=== PATIENT | female | born 1955 | race Caucasian/White ===

== ENCOUNTER → 2017-07-22 | Outpatient (CLI) | payer OTHER, BC ==
[~2017-07-22] MED LIST: ESTR0.3T PO; FELO5TAB PO; STLS
--- NOTE | 2017-07-22 09:01 | DIAGNOSTIC IMAGING REPORT ---
L SHOULDER MIN 2 VIEWS ROUTINE CLINICAL HISTORY: L SHOULDER PAIN COMPARISON: None. DISCUSSION: No fractures or dislocations are visualized. There are small subchondral cysts within the humeral head. IMPRESSION: No fractures or dislocations identified. Electronically signed by: Robert Paredes M.D. 07/22/2017 8:59 AM Dictated Date/Time: 07/22/2017 8:54 AM
== END | disposition home or self-care (01) ==
LOC: C.RAD1850 08:36
PROVIDERS: ATTEND Nurse Practitioner Adult Health
DX: M25.512 Pain in left shoulder (principal)

== ENCOUNTER → 2017-09-22 | Outpatient (CLI) | payer OTHER ==
--- NOTE | 2017-09-23 14:38 | MAMMOGRAPHY REPORT ---
BILATERAL DIGITAL SCREENING MAMMOGRAM TOMOSYNTHESIS WITH CAD: 09/22/2017 CLINICAL HISTORY: Routine screening. Patient has no complaints. TECHNIQUE: Breast tomosynthesis in addition to standard 2D mammography was performed. Current study was also evaluated with a Computer Aided Detection (CAD) system. COMPARISON: Comparison is made to exams dated: 08/02/2016 mammogram, 01/17/2015 mammogram, 12/27/2013 m ammogram, 11/23/2012 mammogram, 10/22/2011 mammogram, and 09/20/2010 mammogram - [facility] enter. BREAST COMPOSITION: There are scattered areas of fibroglandular density in both breasts. FINDINGS: A linear scar marker overlies the medial left breast, denoting an area of prior surgery. There is a focal area of architectural distortion in the 12:00 middle to posterior right breast, for which additional targeted ultrasound and possible additional mammographic views are recommended (best seen on CC tomosynthesis slice 36/65, and MLO tomosynthesis slice 4748/79). No other suspicious mass, architectural distortion or cluster of microcalcifications is seen bilatera lly. IMPRESSION: ACR BI-RADS CATEGORY 0: INCOMPLETE EVALUATION: NEED ADDITIONAL IMAGING EVALUATION The focal area of architectural distortion in the 12:00 right breast needs additional evaluation. The patient will be called to schedule an appointment. Approximately 10% of breast cancers are not detected with mammography. A negative mammographic report should not delay biopsy if a clinically suggestive mass is present. Suellen Meehan M.D. ay/:09/22/2017 15:30:41 Electrical Prospector: Giuliana BERTRAND)(Anastasiya), [facility] letter sent: Addl Imaging 0 BI-RADS Code: ACR BI-RADS Category 0: Incomplete Evaluation: Need Additional Imaging Evaluation
== END | disposition home or self-care (01) ==
LOC: C.MAMM 14:48
PROVIDERS: ATTEND Obstetrics & Gynecology
DX: Z12.31 Encounter for screening mammogram for malignant neoplasm of breast (principal); R92.8 Other abnormal and inconclusive findings on diagnostic imaging of breast

== ENCOUNTER → 2017-10-07 | Outpatient (CLI) | payer OTHER ==
--- NOTE | 2017-10-08 14:02 | MAMMOGRAPHY REPORT ---
UNILATERAL RIGHT DIGITAL DIAGNOSTIC MAMMOGRAM TOMOSYNTHESIS AND TARGETED RIGHT ULTRASOUND: 10/07/2017 CLINICAL HISTORY: 62-year-old woman called back from screening mammography for a possible area of arc hitectural distortion in the 12:00 right breast. TECHNIQUE: Spot compression right CC and MLO tomosynthesis images with reconstructed C-view were obta ined. COMPARISON: Comparison is made to exams dated: 09/22/2017 mammogram, 08/02/2016 mammogram, 01/17/2015 m ammogram, 12/27/2013 mammogram, 11/23/2012 mammogram, and 10/22/2011 mammogram - [facility] enter. BREAST COMPOSITION: The tissue of the right breast is almost entirely fatty. FINDINGS: There is a persistent focal area of architectural distortion in the 12:00 middle to parachute inspector ior right breast measuring approximately 16 x 14 x 9 mm. No other focal areas of distortion, suspici ous mass, asymmetry or suspicious calcifications are seen in the visualized right breast. Further ev aluation with ultrasound was performed. Targeted ultrasound was performed in the 12:00 right breast. Architectural distortion is appreciated in real-time scanning in the 12:00 axis, 7 cm from the nipple. A central area within the distortion is slightly hypoechoic compared to the remainder of the isoechoic tissue and this central area measu res 6.1 x 6.4 mm on ultrasound. It is best appreciated in the antiradial plane. Differential consid erations include radial scar and carcinoma. The patient denies a history of prior right breast surge ry. Therefore definitive characterization with an ultrasound-guided core biopsy is recommended. IMPRESSION: ACR BI-RADS CATEGORY 4: SUSPICIOUS, TARGETED ULTRASOUND ACR BI-RADS CATEGORY 4: SUSPICIO US 1. Ultrasound guided core biopsy is recommended for a focal area of architectural distortion in the 12:00 right breast, 7 cm from the nipple. Given the subtle nature of the lesion, the sonographic alirio surements are thought to underestimate the size, and the mammographic measurements are felt to provid e a more accurate representation, measuring 16 x 14 x 9 mm. These results and recommendations were discussed with the patient at the time of the exam. She tenta tively scheduled the right breast ultrasound guided biopsy prior to leaving our department. Approximately 10% of breast cancers are not detected with mammography. A negative mammographic report should not delay biopsy if a clinically suggestive mass is present. Suellen Shefali M.D. ay/:10/07/2017 14:02:55 Behavioral Medical Director: Loren MEADOWS(John)(M), [facility] letter sent: Abnormal 4/5 BI-RADS Code: ACR BI-RADS Category 4: Suspicious Ultrasound BI-RADS: ACR BI-RADS Category 4: Suspici ous
== END | disposition home or self-care (01) ==
LOC: C.MAMM 13:14
PROVIDERS: ATTEND Obstetrics & Gynecology
DX: N64.89 Other specified disorders of breast (principal)

== ENCOUNTER → 2017-10-14 | Outpatient (CLI) | payer OTHER ==
--- NOTE | 2017-10-14 13:25 | Discharge Instructions ---
Discharge Instructions Procedure Procedure Date: Oct 14, 2017. Reason for visit: Right Distortion. Discharge Discharge Date: Oct 14, 2017. Discharge Diagnosis: post right breast ultrasound guided core biopsy Instructions Activity Recommendations: Additional Limitations (see below) Return to School/Work: no limitations Recommended Home Diet: No Limitations Provider Instructions: ACTIVITY RECOMMENDATIONS: * No lifting, pushing, pulling or exercising the affected side for three days. RETURN TO SCHOOL/WORK: * You may return to work/school after the procedure, but do not perform any strenuous activities for 24 to 48 hours. MEDICATIONS: * Tylenol (two 325 mg) every four to six hours if needed for mild pain (if not allergic to Tylenol). DIET: * Resume previous diet. SPECIAL CARE INSTRUCTIONS: * Keep biopsy site dry for 24 hours. May shower after 24 hours, but do not soak (bathe) incision. * May remove Tegaderm (plastic patch) tomorrow AFTER showering. * Leave the steri-strips on for one week. Allow the steri-strips to fall off by themselves. If not off after one week, you may remove them. You may place a Bandaid crosswise over the strips, if desired. * Apply ice 10 minutes on and 10 minutes off as needed. * Wear a bra at bedtime to sleep more comfortably for 2-3 days. * Your referring physician should have the results after approximately 5 to 7 business days. * Call for unusual bleeding, fever, drainage, etc or if you have any questions call [phone] during normal business hours or after hours call Dr Meehan, . FOLLOW UP VISIT: Follow-up with Referring Physician as scheduled. Allergies Coded Allergies: No Known Allergies (Verified , O, 03/02/13) [place] Recommendations: Call your doctor if: * Temperature above 101 degrees * Pain not relieved by pain medicine ordered * There is increased drainage or redness from any incision * You have any unanswered questions or concerns. Your Doctors Instructions noted above were prepared by provider Suellen Meehan. Patient Signature Section: Patient Instructions Signature Page Preethi Salgado Patient (or Guardian) Signature/Date: I have read and understand the instructions given to me by my caregivers. Caregiver/RN/Doctor Signature/Date: The above-named patient and/or guardian has received patient instructions on this date. + Original Patient Signature Page (only) stays with chart. Please make copy for patient.
--- NOTE | 2017-10-15 15:20 | MAMMOGRAPHY REPORT ---
ULTRASOUND GUIDED BIOPSY RIGHT BREAST: 10/14/2017 CLINICAL HISTORY: Focal area of architectural distortion in the 12:00 middle one third of the right b reast. Patient presents for ultrasound guided core needle biopsy. COMPARISON: Comparison is made to exams dated: 10/07/2017 mammogram, 10/07/2017 ultrasound, 09/22/2017 ma mmogram, 08/02/2016 mammogram, 01/17/2015 mammogram, and 12/27/2013 mammogram - [facility] nter. PATIENT CONSENT: The procedure, risks and benefits were discussed with the patient and informed conse nt was obtained both verbally and in writing. Specific risks to this procedure include: bleeding, in fection, puncture of adjacent structure, nontarget biopsy, sampling error, pain, metal allergy and me dication reaction. PROCEDURE DESCRIPTION: A time out was performed and the right breast was agreed as the site of biopsy . The skin was prepped and draped in the usual sterile fashion. The subtle area of architectural dist ortion in the 12:00 middle one third of the right breast was identified and chosen as the target for biopsy. Subcutaneous and intraparenchymal 1% buffered lidocaine, with and without epinephrine, was ad ministered as local anesthesia. A skin incision was made. Through the incision, 5 samples were taken with a 12 gauge Celero biopsy device. A ribbon shaped metallic marker was placed at the biopsy site. Hemostasis was achieved after manual compression. The patient tolerated the procedure well and there was no immediate complication. The samples were sent to the pathology department in an appropriatel y labeled container. Postprocedure right CC and ML tomosynthesis images were obtained. A new ribbon-shaped biopsy marker clip is identified centrally within the area of distortion in the 12:00 right breast. No significant postbiopsy hematoma identified. IMPRESSION: ULTRASOUND GUIDED BIOPSY Status post ultrasound guided core biopsy of a focal area of architectural distortion in the 12:00 ri ght breast, with biopsy marker clip placed at the site. The patient will receive notification of the biopsy results from her referring physician. Suellen Meehan M.D. ay/:10/14/2017 14:43:45 Ruling Machine Feeder: Harleen MEADOWS(John)(Anastasiya), [facility]
--- NOTE | 2017-10-15 15:25 | MAMMOGRAPHY REPORT ---
UNILATERAL RIGHT DIGITAL DIAGNOSTIC MAMMOGRAM TOMOSYNTHESIS: 10/14/2017 CLINICAL HISTORY: Status post ultrasound-guided core biopsy of a focal area of architectural distorti on in the 12:00 right breast. Please refer to the report from right breast ultrasound guided core biopsy performed at the same time for full detail. IMPRESSION: POST PROCEDURE IMAGING FOR MARKER PLACEMENT Please refer to the report from right breast ultrasound guided core biopsy performed at the same time for full detail. Approximately 10% of breast cancers are not detected with mammography. A negative mammographic report should not delay biopsy if a clinically suggestive mass is present. Suellen Meehan M.D. ay/:10/14/2017 13:24:45 Mathematician: Harleen MEADOWS(R)(M), [facility] BI-RADS Code: Post Procedure Imaging For Marker Placement
== END | disposition home or self-care (01) ==
LOC: C.MAMM 12:38
PROVIDERS: ATTEND Obstetrics & Gynecology
DX: N64.9 Disorder of breast, unspecified (principal); N64.89 Other specified disorders of breast

== ENCOUNTER → 2017-10-29 | Outpatient (CLI) | payer OTHER ==
[~2017-10-29] MED LIST changes: +HYDR-5688 PO; +IBUP-1050 PO
[2017-10-29 14:35] LABS: BASO % 0.6 %; BASO ABS # 0.03 K/uL (0-0.2); EOS % 1.8 %; EOS ABS # 0.09 K/uL (0-0.5); HEMATOCRIT 43.3 % (37-47); HEMOGLOBIN 15.7 g/dL (12.0-16.0); IG# 0.01 K/uL (0.00-0.02); LYMPH % 39.2 %; LYMPH ABS # 1.98 K/uL (1.2-3.4); MEAN CORPUSCULAR HEMOGLOBIN 31.9 pg (25-34); MEAN CORPUSCULAR HGB CONC 36.3 g/dl (32-36); MEAN PLATELET VOLUME 9.5 fL (7.4-10.4); MONO % 7.5 %; MONO ABS # 0.38 K/uL (0.11-0.59); NEUT % 50.7 %; NEUT ABS # 2.56 K/uL (1.4-6.5); PLATELET COUNT 217 K/uL (130-400); RED CELL DISTRIBUTION WIDTH CV 12.5 % (11.5-14.5); RED CELL DISTRIBUTION WIDTH SD 39.9 fL (36.4-46.3); WHITE BLOOD COUNT 5.05 K/uL (4.8-10.8)
[2017-10-29 15:02] LABS: BLOOD UREA NITROGEN 11 mg/dl (7-18); CALCIUM 9.6 mg/dl (8.5-10.1); CARBON DIOXIDE 30 mmol/L (21-32); CREATININE 0.68 mg/dl (0.60-1.20); GLUCOSE 80 mg/dl (70-99); POTASSIUM 2.9 mmol/L (3.5-5.1); SODIUM 139 mmol/L (136-145)
== END | disposition home or self-care (01) ==
LOC: C.LAB 13:54
PROVIDERS: ATTEND Surgery
DX: Z01.812 Encounter for preprocedural laboratory examination (principal); Z01.810 Encounter for preprocedural cardiovascular examination; R92.8 Other abnormal and inconclusive findings on diagnostic imaging of breast

== ENCOUNTER → 2017-11-04 | Day surgery (SDC) | payer OTHER ==
[2017-10-29 15:08] VITALS: Ht 162.6 cm; Wt 86.4 kg
[~2017-11-04] VITALS: Ht 162.6 cm; Wt 86.4 kg
[~2017-11-04] MED LIST changes: +ATROPINE SULFATE 0.1 MG/ML 5ML SYR IV PRN; +BUPIVACAINE 0.5 % 5 MG/1 ML MPF 30ML VIAL ONE; +CEFAZOLIN 2000MG IV PUSH 15 ML IV SCH; +DEXAMETHASONE SOD INJ 4 MG/ML VIAL IV PRN; +DEXAMETHASONE SOD INJ 4 MG/ML VIAL ONE; -ESTR0.3T PO; +EpHEDrine SULFATE INJ 50 MG/ML AMP IV PRN; +FENTANYL CITRATE INJ 50 MCG/1 ML 2 ML VIAL IV PRN; +FENTANYL CITRATE INJ 50 MCG/1 ML 2 ML VIAL ONE; +HYDROCODONE/ACETAMIN 5/325MG TAB PO PRN; +KETOROLAC TROMETHAMINE 30 MG/ML VIAL IV. PRN; +LABETALOL HCL IV 5 MG/ML 20ML IV PRN; +LACTATED RINGER'S 1000ML 1,000 ML IV SCH; +LIDOCAINE HCL 1% 20 ML VIAL ONE; +LIDOCAINE HCL 2% 2 ML VIAL (20MG/ML) ONE; +METOCLOPRAMIDE HCL INJ 5 MG/ML 2 ML VIAL IV PRN; +MIDAZOLAM HCL 1 MG/ML 2ML VIAL ONE; +MoRPHine SULFATE 10 MG/ML CARP/VIAL IV PRN; +ONDANSETRON INJ 2 MG/ML 2 ML VIAL IV PRN; +ONDANSETRON INJ 2 MG/ML 2 ML VIAL ONE; +PHENYLEPHRINE 100MCG/ML 5ML SYR IV PRN; +PROPOFOL IV EMULSION 10 MG/ML 20 ML VIAL IV ONE; +SODIUM CHLORIDE 0.9% 1000ML 1,000 ML IV SCH; -STLS
--- NOTE | 2017-11-04 09:14 | History & Physical Bridge - SC ---
H&P Re-Evaluation Bridge Note: I have examined the patient, reviewed the History & Physical and in the interval since the performance of the History & Physical I have noted the following changes of clinical significance: No changes noted
--- NOTE | 2017-11-04 09:17 | Discharge Instructions-SurgCtr ---
Discharge Instructions Date of Service Nov 04, 2017. Visit Reason for Visit: Abnormal Mammogram Discharge Discharge Diagnosis / Problem: abnormal mammo Discharge Goals Goal(s): Decrease discomfort, Improve function, Improve disease control Activity Recommendations Activity Limitations: as noted below Lifting Limitations: no more than 25 pounds (for 2 weeks) Exercise/Sports Limitations: until after follow-up appointment May Resume Sexual Activity: when tolerated Shower/Bathe: keep incision dry (may shower over incision in 2 days- 11/06) Driving or Machine Use: resume 1 day after discharge Anesthesia . Post Anesthesia Instructions: If you have had General Anesthesia or IV Sedation: * Do not drive today. * Resume driving when surgeon permits. * Do not make important decisions or sign legal documents today. * Call surgeon for: 1. Temperature elevations greater than 101 degrees F. 2. Uncontrollable pain. 3. Excessive bleeding. 4. Persistent nausea and vomiting. 5. Medication intolerance (nausea, vomiting or rash). * For nausea and vomiting use only clear liquids such as: tea, soda, bouillon until nausea subsides, then gradually increase diet as tolerated. * If you have any concerns or questions, call your surgeon's office. If physician is unavailable and it is an emergency, call 911 or go to the nearest emergency room. . Instructions / Follow-Up Instructions / Follow-Up SPECIAL CARE INSTRUCTIONS: * Cover incisions and change daily for comfort/drainage. * Leave steri strips in place * May use ibuprofen for pain as tolerated. * Expect some swelling and bruising. Call your doctor if: * Temperature above 101 degrees * Pain not relieved by pain medicine ordered * There is increased drainage or redness from any incision * You have any unanswered questions or concerns [phone]. FOLLOW UP VISIT: If not already scheduled, please call the office for a follow-up visit. for 2 weeks- wound check OFFICE PHONE NUMBER: Dr. Marti Office Diet Recommendations Home Diet: resume previous diet Pending Studies Studies pending at discharge: no Medical Emergencies . Who to Call and When: Medical Emergencies: If at any time you feel your situation is an emergency, please call 911 immediately. . Non-Emergent Contact Non-Emergency issues call your: Primary Care Provider, Surgeon . . "Provider Documentation" section prepared by Duglas Marti. .
--- NOTE | 2017-11-04 10:02 | [facility] Operative Report ---
Operative Report Operative Date Nov 04, 2017. Pre-Operative Diagnosis Abnormal Mammogram Post-Operative Diagnosis Same Procedure(s) Performed Right Breast Biopsy With Needle Localization Surgeon Dr. Marti Sales Driver Surgeon(s) Cami Barrett PA-C Estimated Blood Loss 5ML Specimens A: Right Breast Mass out of body 0948 Needle is Anterior, Long Silk is Lateral, Short Silk is Medial Sent to [facility] at 0952 Drains None Anesthesia Type General Complication(s) none Disposition Recovery Room / PACU Description of Procedure Dr. Marti dictating on 11/04/2017. Patient is brought in the operating room placed in the operating room table in supine position. She had undergone needle localization of the right breast at the breast [place] preoperatively. Her right breast and chest area were prepped and draped in usual fashion. Half percent plain Marcaine was used to anesthetize the skin and subcu tissue around the needle. Incision was made just lateral to the needle carried dissection down around the needle excising the tissue and marking the specimen-needle anterior, long silk suture lateral, and short silk suture medial. The tissue was sent to the breast [place] for imaging. The clip was within the center of the specimen. Deep tissue was then reapproximated using 2-0 plain suture. The skin was reapproximated using 5-0 Monocryl suture and Steri-Strips. A dressing was applied and patient transferred to the recovery area in stable condition. My rehabilitation assistant helped with prepping draping exposure of the tissue and closure of the wound. Dr. Marti dictating on 11/04/2017. I attest to the content of the Intraoperative Record and any orders documented therein. Any exceptions are noted below.
[2017-11-04 10:37] VITALS: TEMP 37
[2017-11-04 10:57] VITALS: BP 122/81; PULSE 83; O2SAT 95
--- NOTE | 2017-11-04 10:58 | Anesthesia Progress Nt - [facility] ---
Anesthesia Post Op Note Date & Time Nov 04, 2017 at 10:58 Vital Signs Pain Intensity: 0 Vital Signs Past 12 Hours Date Time Temp Pulse Resp B/P (MAP) Pulse Ox O2 Delivery O2 Flow Rate FiO2 11/04/17 10:37 37.0 78 109/74 (86) 94 Room Air 11/04/17 10:31 36.5 11/04/17 10:30 112/73 (79) 11/04/17 10:29 91 17 11/04/17 10:29 92 17 94 11/04/17 10:25 112/79 (94) 11/04/17 10:24 92 14 11/04/17 10:24 93 14 98 11/04/17 10:23 Room Air 11/04/17 10:20 104/77 (82) 11/04/17 10:19 96 14 11/04/17 10:19 97 14 99 11/04/17 10:15 113/78 (91) 11/04/17 10:14 97 6 99 11/04/17 10:14 98 6 11/04/17 10:10 119/77 (83) 11/04/17 10:09 118 13 11/04/17 10:09 13 11/04/17 10:06 131/83 (97) 11/04/17 10:04 36.1 121 16 131/83 97 Diffusion Mask 5 11/04/17 07:36 36.2 49 22 119/78 (92) 98 Room Air Notes Mental Status: alert / awake / arousable, participated in evaluation Pt Amnestic to Procedure: Yes Nausea / Vomiting: adequately controlled Pain: adequately controlled Airway Patency, RR, SpO2: stable & adequate BP & HR: stable & adequate Hydration State: stable & adequate Anesthetic Complications: no major complications apparent
--- NOTE | 2017-11-04 15:15 | MAMMOGRAPHY REPORT ---
NEEDLE LOCALIZATION RIGHT BREAST: 11/04/2017 CLINICAL HISTORY: Focal area of architectural distortion in the 12:00 right breast. Ultrasound-guide d core biopsy yielded focal fibrosis but this was felt to be discordant and surgical excisional biops y was recommended. Patient presents for preoperative tomosynthesis guided localization. COMPARISON: Comparison is made to exams dated: 10/14/2017 mammogram, 10/14/2017 ultrasound biopsy, 10/07 mammogram, 10/07/2017 ultrasound, 08/02/2016 mammogram, and 09/22/2017 mammogram - [facility]. PATIENT CONSENT: The risks of the procedure were explained to the patient and informed consent was ob tained. The patient denied eating or drinking anything this morning that would preclude anesthesia. She denied allergy to lidocaine. PROCEDURE DESCRIPTION: Prior mammograms, ultrasounds including ultrasound-guided core biopsy images a nd postprocedure mammograms dated 10/14/2017 were reviewed. The focal area of architectural distortio n and associated ribbon-shaped biopsy marker clip in the 12:00 middle to posterior right breast is th e intended target for localization. Right with the patient in the seated position, the right breast was placed in CC from above compressi on. A tomosynthesis view was obtained. The skin of the right breast was cleansed with alcohol. 1% buffered Lidocaine without epinephrine was administered as local anesthesia. A 5cm Meeks II needle and wire combination was inserted into the breast near the biopsy marker clip and area of distortion. Optimal positioning was confirmed and the wire was locked in place, leaving both the needle and wire within the breast, as per surgeon's preference. The entire procedure including approach and needle length were discussed with the operating surgeon prior to surgery. The patient tolerated the procedu re well and there was no immediate complication. She was sent to the operating room in satisfactory condition. The specimen radiograph demonstrates the localizing needle and wire, focal area of distortion in for which a biopsy marker clip compatible with successful preoperative localization and subsequent surgic al excision. IMPRESSION: NEEDLE LOCALIZATION Status post preoperative needle wire localization for a focal area of architectural distortion and as sociated ribbon-shaped biopsy marker clip in the 12:00 right breast. The imaged specimen includes th e intended abnormalities. The patient will receive notification of the pathology results from her referring physician. Suellen Meehan M.D. ay/:11/04/2017 10:28:39 Alfalfa Dehydrator Operator: Loren MEADOWS(John)(M), [facility]
--- NOTE | 2017-11-04 15:16 | MAMMOGRAPHY REPORT ---
SPECIMEN: 11/04/2017 CLINICAL HISTORY: Right breast surgical excision specimen for an area of architectural distortion in the 12:00 axis. Please refer to the report from right breast tomosynthesis guided needle localization performed at e same time for full detail. IMPRESSION: SPECIMEN Please refer to the report from right breast tomosynthesis guided needle localization performed at e same time for full detail. Suellen Meehan M.D. ay/:11/04/2017 08:26:01 Office Clerk: Loren MEADOWS(John)(M), [facility]
== END | disposition home or self-care (01) ==
LOC: X.SURG 07:25
PROVIDERS: ATTEND Surgery
DX: R92.8 Other abnormal and inconclusive findings on diagnostic imaging of breast (principal); N63.10 Unspecified lump in the right breast, unspecified quadrant; I10 Essential (primary) hypertension; Z90.710 Acquired absence of both cervix and uterus; Z96.652 Presence of left artificial knee joint; E66.9 Obesity, unspecified; Z98.41 Cataract extraction status, right eye; Z98.42 Cataract extraction status, left eye; E78.5 Hyperlipidemia, unspecified; M19.90 Unspecified osteoarthritis, unspecified site

== ENCOUNTER → 2018-04-13 | Outpatient (CLI) | payer OTHER ==
[~2018-04-13] MED LIST changes: -ATROPINE SULFATE 0.1 MG/ML 5ML SYR IV PRN; -BUPIVACAINE 0.5 % 5 MG/1 ML MPF 30ML VIAL ONE; -CEFAZOLIN 2000MG IV PUSH 15 ML IV SCH; -DEXAMETHASONE SOD INJ 4 MG/ML VIAL IV PRN; -DEXAMETHASONE SOD INJ 4 MG/ML VIAL ONE; -EpHEDrine SULFATE INJ 50 MG/ML AMP IV PRN; -FENTANYL CITRATE INJ 50 MCG/1 ML 2 ML VIAL IV PRN; -FENTANYL CITRATE INJ 50 MCG/1 ML 2 ML VIAL ONE; -HYDR-5688 PO; -HYDROCODONE/ACETAMIN 5/325MG TAB PO PRN; -KETOROLAC TROMETHAMINE 30 MG/ML VIAL IV. PRN; -LABETALOL HCL IV 5 MG/ML 20ML IV PRN; -LACTATED RINGER'S 1000ML 1,000 ML IV SCH; -LIDOCAINE HCL 1% 20 ML VIAL ONE; -LIDOCAINE HCL 2% 2 ML VIAL (20MG/ML) ONE; -METOCLOPRAMIDE HCL INJ 5 MG/ML 2 ML VIAL IV PRN; -MIDAZOLAM HCL 1 MG/ML 2ML VIAL ONE; -MoRPHine SULFATE 10 MG/ML CARP/VIAL IV PRN; -ONDANSETRON INJ 2 MG/ML 2 ML VIAL IV PRN; -ONDANSETRON INJ 2 MG/ML 2 ML VIAL ONE; -PHENYLEPHRINE 100MCG/ML 5ML SYR IV PRN; -PROPOFOL IV EMULSION 10 MG/ML 20 ML VIAL IV ONE; -SODIUM CHLORIDE 0.9% 1000ML 1,000 ML IV SCH
== END | disposition home or self-care (01) ==
LOC: C.RDSM 08:00
PROVIDERS: ATTEND Physical Medicine & Rehabilitation Sports Medicine
DX: M75.102 Unspecified rotator cuff tear or rupture of left shoulder, not specified as traumatic (principal)

== ENCOUNTER → 2018-04-14 | Outpatient (CLI) | payer OTHER ==
--- NOTE | 2018-04-14 14:57 | MAMMOGRAPHY REPORT ---
UNILATERAL RIGHT DIGITAL DIAGNOSTIC MAMMOGRAM TOMOSYNTHESIS WITH CAD: 04/14/2018 CLINICAL HISTORY: 62-year-old woman presents for follow-up in the right breast after surgical excisio nal biopsy of an area of architectural distortion in the 12:00 axis yielded prominent fibrous tissue. TECHNIQUE: Right breast CC and MLO 2D and tomosynthesis images were obtained. Current study was also evaluated with a Computer Aided Detection (CAD) system. COMPARISON: Comparison is made to exams dated: 10/14/2017 mammogram, 10/07/2017 mammogram, 09/22/2017 ma mmogram, 08/02/2016 mammogram, 01/17/2015 mammogram, and 12/27/2013 mammogram - [facility] nter. BREAST COMPOSITION: There are scattered areas of fibroglandular density in right breast. FINDINGS: A linear scar marker overlies the 12:00 right breast, denoting the skin surgical scar from recent excisional biopsy. There is expected architectural distortion and focal asymmetry in the 12:0 0 middle one third of the right breast, at the site of excision, which yielded benign fibrous tissue. There are 2 stable benign rim calcifications in the lateral right breast. No new suspicious mass, u nexpected architectural distortion or cluster of microcalcifications is seen. IMPRESSION: ACR BI-RADS CATEGORY 2: BENIGN Expected postsurgical changes in the right breast, without mammographic evidence of malignancy. Retur n to annual mammogram screening schedule is recommended.(09/23/2018) The patient has been verbally n otified of the results. Some breast cancers are not detected with mammography. A negative mammographic report should not opal y biopsy if a clinically suggestive mass is present. Suellen Meehan M.D. ay/:04/14/2018 09:03:37 Hog Ribber: Jaclyn Valerio RT(R)(M), [facility] letter sent: Normal 1/2 BI-RADS Code: ACR BI-RADS Category 2: Benign
== END | disposition home or self-care (01) ==
LOC: C.MAMM 08:22
PROVIDERS: ATTEND Surgery
DX: Z09 Encounter for follow-up examination after completed treatment for conditions other than malignant neoplasm (principal); R92.8 Other abnormal and inconclusive findings on diagnostic imaging of breast